=== PATIENT | female | born 1935 | race Caucasian/White ===

== ENCOUNTER 2017-06-22 18:46 | Emergency (ER) | payer MEDICARE ==
[~2017-06-22] VITALS: Ht 154.9 cm; Wt 74.8 kg
[~2017-06-22 18:46] MED LIST: AMLO5TAB4 PO; CHLO10CA5 PO; CHOL400C2 PO; CRESTOR5 MG PO; FERR325T58 PO; FURO-69 PO; MECL25TA3 PO; MULT-245 PO; OMEP40CA5 PO; ONDA4TAB12 PO; SUCR1TAB35 PO; SULF-16 PO; VIT1TABL32 PO
[2017-06-22 19:52] LABS: BASO % 1 % (0-3); EOS # 0.1 x10^3/uL (0.0-0.7); EOS % 4 % (0-3); HEMATOCRIT 40.7 % (36.0-47.0); HEMOGLOBIN 13.8 g/dL (12.0-15.5); LYMPH # 1.2 x10^3/uL (1.0-4.8); LYMPH % 33 % (24-48); MEAN CORPUSCULAR HEMOGLOBIN 32 pg (25-35); MEAN CORPUSCULAR HGB CONC 34 g/dL (31-37); MEAN CORPUSCULAR VOLUME 94 fL (79-100); MONO # 0.3 x10^3/uL (0.0-1.1); MONO % 9 % (0-9); NEUT % 53 % (31-73); PLATELET COUNT 184 x10^3/uL (140-400); RED BLOOD COUNT 4.33 x10^6/uL (3.50-5.40); RED CELL DISTRIBUTION WIDTH 13.7 % (11.5-14.5); WHITE BLOOD COUNT 3.8 x10^3/uL (4.0-11.0)
[2017-06-22 19:59] LABS: ALBUMIN 3.8 g/dL (3.4-5.0); ALBUMIN/GLOBULIN RATIO 1.1 (1.0-1.7); CALCIUM 9.1 mg/dL (8.5-10.1); CREATININE 1.3 mg/dL (0.6-1.0); GFR 39.4; POTASSIUM 3.6 mmol/L (3.5-5.1); TOTAL BILIRUBIN 0.2 mg/dL (0.2-1.0); TOTAL PROTEIN 7.3 g/dL (6.4-8.2)
--- NOTE | 2017-06-22 20:07 | RAD ---
CT head without contrast TECHNIQUE: 5 mm axial noncontrast imaging skull base to vertex HISTORY: Weakness, headache, activated as code stroke at 7:52 PM by phone call by the electroencephalograph technologist. This study was not originally completed as a code stroke. FINDINGS: Small extra-axial subcentimeter calcification overlying the right frontal lobe could be a dural calcification or small meningioma or vascular calcification. Mild generalized brain atrophy. No intracranial hemorrhage, mass effect, hydrocephalus or cortical infarction. Mild patchy areas of white matter hypoattenuation involving the bilateral internal capsules and right external capsule and bilateral cerebral periventricular white matter likely chronic microvascular disease. Subcentimeter hypoattenuating lesion right frontal pollard radiata white matter could be a small age-indeterminate lacunar infarct. No acute ischemic changes of the rausch matter evident. Orbits, mastoids, paranasal sinuses and bones are unremarkable. IMPRESSION: No acute abnormality. Age-indeterminate subacute or chronic small right frontal white matter lacunar infarct. Mild changes of chronic cerebral white matter microvascular disease. Subcentimeter calcification overlying the right frontal lobe likely vascular or secondarily this could be a small meningioma. Critical results called to Dr. Teague at 8:00 PM June 22, 2017. Exposure: One or more of the following individualized dose reduction techniques were utilized for this examination: 1. Automated exposure control 2. Adjustment of the mA and/or kV according to patient size 3. Use of iterative reconstruction technique Electronically signed by: Yohannes Van MD (06/22/2017 8:03 PM) [facility]
[2017-06-22] MEDS ORDERED: ASPIRIN 81 MG TAB.CHEW PO ONE (20:15)
[2017-06-22] MEDS ORDERED: ASPIRIN 81 MG TAB.CHEW ONE (20:15)
--- NOTE | 2017-06-22 20:39 | PHYS DOC ---
Past History Past Medical History: COPD, DVT, GI Bleed, High Cholesterol, Hypertension, P.U.D, TIA, Other Past Surgical History: Hysterectomy, Oophorectomy, Other Smoking: Non-smoker Alcohol Use: None Drug Use: None Adult General Chief Complaint Chief Complaint: SLURRED SPEECH HPI HPI Patient is a 81 year old female who presents with neurologic symptoms. The patient states around 1600 today she had onset of right-sided facial droop, drooling, dysarthria, expressive aphasia. Her symptoms resolved completely prior to arrival. She states she feels better but she had history of previous TIA and would like to be evaluated. She denies any current complaints. Denies headache, vision changes, facial droop, speech changes, extremity numbness or weakness. Denies fevers or chills, chest pain, shortness of breath, lower extremity pain or swelling. She denies current use of any blood thinners but does take aspirin daily. History also includes DVT, HTN, COPD. Her PCP is Dr. Travis. Review of Systems Review of Systems Constitutional: Denies fever or chills Eyes: Denies change in visual acuity HENT: Denies nasal congestion or sore throat Respiratory: Denies cough or shortness of breath Cardiovascular: Denies chest pain or edema GI: Denies abdominal pain, nausea, vomiting, bloody stools or diarrhea : Denies dysuria Musculoskeletal: Denies back pain or joint pain Integument: Denies rash or skin lesions Neurologic: Denies headache, reports resolved facial droop, dysarthria, expressive aphasia. All other systems were reviewed and found to be within normal limits, except as documented in this note. Current Medications Current Medications Current Medications Medications (Trade) Dose Ordered Sig/Faustino Start Time Stop Time Status Last Admin Dose Admin Aspirin (Children'S Aspirin) 81 mg STK-MED ONCE 06/22/17 20:15 06/22/17 20:16 DC Allergies Allergies Allergies Coded Allergies Type Severity Reaction Last Updated Verified Penicillins Allergy Severe Anaphylaxis 04/03/14 Yes Quinolones Allergy Severe Anaphylaxis 04/03/14 Yes fish oil Allergy Severe anaphylaxis 04/03/14 Yes ciprofloxacin Allergy Intermediate sob 09/27/14 No morphine Allergy Intermediate gi 09/27/14 No zolpidem Allergy Intermediate would not wake up 09/27/14 No Physical Exam Physical Exam Constitutional: obese, no acute distress, non-toxic appearance. HENT: Normocephalic, atraumatic, bilateral external ears normal, oropharynx moist, nose normal. no facial droop. Eyes: PERRLA, EOMI, conjunctiva normal, no discharge. Neck: supple, no stridor. Cardiovascular: RRR, no murmurs, no edema. Lungs & Thorax: LCTAB, no wheezing, no respiratory distress. Abdomen: soft, nontender, nondistended. Skin: Warm, dry, no erythema, no rash. Back: No tenderness. Extremities: No tenderness, no edema. Neurologic: Alert and oriented X 3, cranial nerves 2-12 grossly intact, symmetric strength/sensation to upper & lower extremities, intact finger to nose & heel to boateng, no palmar drift, no focal deficits noted. Psychologic: Affect normal, judgement normal, mood normal. Current Patient Data Vital Signs Vital Signs Date Time Temp Pulse Resp B/P (MAP) Pulse Ox O2 Delivery O2 Flow Rate FiO2 06/22/17 18:47 98.1 72 20 99 Room Air Lab Results Laboratory Tests Test 06/22/17 19:20 White Blood Count 3.8 x10^3/uL (4.0-11.0) L Red Blood Count 4.33 x10^6/uL (3.50-5.40) Hemoglobin 13.8 g/dL (12.0-15.5) Hematocrit 40.7 % (36.0-47.0) Mean Corpuscular Volume 94 fL (79-100) Mean Corpuscular Hemoglobin 32 pg (25-35) Mean Corpuscular Hemoglobin Concent 34 g/dL (31-37) Red Cell Distribution Width 13.7 % (11.5-14.5) Platelet Count 184 x10^3/uL (140-400) Neutrophils (%) (Auto) 53 % (31-73) Lymphocytes (%) (Auto) 33 % (24-48) Monocytes (%) (Auto) 9 % (0-9) Eosinophils (%) (Auto) 4 % (0-3) H Basophils (%) (Auto) 1 % (0-3) Neutrophils # (Auto) 2.0 x10^3uL (1.8-7.7) Lymphocytes # (Auto) 1.2 x10^3/uL (1.0-4.8) Monocytes # (Auto) 0.3 x10^3/uL (0.0-1.1) Eosinophils # (Auto) 0.1 x10^3/uL (0.0-0.7) Basophils # (Auto) 0.0 x10^3/uL (0.0-0.2) Sodium Level 146 mmol/L (136-145) H Potassium Level 3.6 mmol/L (3.5-5.1) Chloride Level 109 mmol/L (98-107) H Carbon Dioxide Level 28 mmol/L (21-32) Anion Gap 9 (6-14) Blood Urea Nitrogen 29 mg/dL (7-20) H Creatinine 1.3 mg/dL (0.6-1.0) H Estimated GFR (Cockcroft-Gault) 39.4 BUN/Creatinine Ratio 22 (6-20) H Glucose Level 99 mg/dL (70-99) Calcium Level 9.1 mg/dL (8.5-10.1) Total Bilirubin 0.2 mg/dL (0.2-1.0) Aspartate Amino Transferase (AST) 15 U/L (15-37) Alanine Aminotransferase (ALT) 28 U/L (14-59) Alkaline Phosphatase 100 U/L (46-116) Troponin I Quantitative < 0.017 ng/mL (0-0.055) Total Protein 7.3 g/dL (6.4-8.2) Albumin 3.8 g/dL (3.4-5.0) Albumin/Globulin Ratio 1.1 (1.0-1.7) EKG EKG Interpreted by me: Normal sinus rhythm rate 63, no acute ST or T wave changes, WI interval prolonged 262 ms, no ectopy. Radiology/Procedures Radiology/Procedures PROCEDURE: CT HEAD WO CONTRAST CT head without contrast TECHNIQUE: 5 mm axial noncontrast imaging skull base to vertex HISTORY: Weakness, headache, activated as code stroke at 7:52 PM by phone call by the medical technologist blood bank. This study was not originally completed as a code stroke. FINDINGS: Small extra-axial subcentimeter calcification overlying the right frontal lobe could be a dural calcification or small meningioma or vascular calcification. Mild generalized brain atrophy. No intracranial hemorrhage, mass effect, hydrocephalus or cortical infarction. Mild patchy areas of white matter hypoattenuation involving the bilateral internal capsules and right external capsule and bilateral cerebral periventricular white matter likely chronic microvascular disease. Subcentimeter hypoattenuating lesion right frontal pollard radiata white matter could be a small age-indeterminate lacunar infarct. No acute ischemic changes of the rausch matter evident. Orbits, mastoids, paranasal sinuses and bones are unremarkable. IMPRESSION: No acute abnormality. Age-indeterminate subacute or chronic small right frontal white matter lacunar infarct. Mild changes of chronic cerebral white matter microvascular disease. Subcentimeter calcification overlying the right frontal lobe likely vascular or secondarily this could be a small meningioma. Critical results called to Dr. Teague at 8:00 PM June 22, 2017. Exposure: One or more of the following individualized dose reduction techniques were utilized for this examination: 1. Automated exposure control 2. Adjustment of the mA and/or kV according to patient size 3. Use of iterative reconstruction technique Electronically signed by: Bria Van MD (06/22/2017 8:03 PM) [facility] DICTATED AND SIGNED BY: BRIA VAN MD DATE: 06/22/171956[] Course & Med Decision Making Course & Med Decision Making Pertinent Labs and Imaging studies reviewed. (See chart for details) The patient presents with neurologic symptoms. NIH was 0 upon arrival, completely asymptomatic. While she was here, she had at least 2 episodes of recurrence of dysarthria and expressive aphasia. Each episode lasted less than 10 minutes and then she returned completely to baseline. At no time did she have any change in mental status or extremity symptoms. CT was initially not obtained as code stroke priority but we did expedite reading by the radiologist when she had recurrence of symptoms. No hemorrhage, no acute abnormality. She has a small subacute lacunar infarct which the radiologist felt less likely to be related to her current symptoms that she is right handed and this finding is in the right frontal lobe. Discussed briefly with Dr. Olivares at [facility] who recommended transfer to higher level stroke center. Discussed with Dr. Funes , stroke attending. He agrees to accept for transfer and admission to [facility]. At this time patient is asymptomatic, & he agrees that TPA would not be indicated. The patient has some reservations about receiving TPA. I find no contraindication at this time but do not recommend due to complete resolution of symptoms. Dr. Funes recommends emergent transfer as soon as bed available, they will proceed with advanced imaging upon arrival to [facility]. Patient & family aware of recommendations & plan , & agree. Updated Dr. Travis regarding She is to be transferred by EMS in guarded condition. [] Dragon Disclaimer Dragon Disclaimer This electronic medical record was generated, in whole or in part, using a voice recognition dictation system. Departure Departure: Impression: Primary Impression: Transient ischemic attack Additional Impressions: Dysarthria Expressive aphasia Disposition: XFER OTHER Condition: GUARDED Referrals: KAZ TRAVIS MD (PCP) Problem Qualifiers Primary Impression: Transient ischemic attack Transient cerebral ischemia type: unspecified Qualified Codes: G45.9 - Transient cerebral ischemic attack, unspecified MIRNA CEDEÑO MD Jun 22, 2017 20:39
[2017-06-22 21:12] LABS: BACTERIA,URINE 0 /HPF (0-FEW); BILIRUBIN,URINE NEG (NEG); CLARITY,URINE HAZY; COLOR,URINE YELLOW; GLUCOSE,URINE NEG (NEG); NITRITE,URINE NEG (NEG); RBC,URINE OCC /HPF (0-2); SQUAMOUS EPITHELIAL CELL,UR MOD /LPF; UROBILINOGEN,URINE 0.2 mg/dL (0.2 mg/dL); WBC,URINE OCC /HPF (0-4)
[2017-06-22 21:40] VITALS: BP 141/85
--- NOTE | 2017-06-22 22:17 | EKG ---
[address] [address] Test Date: 2017-06-22 Test Time: 19:12:14 Pat Name: LEYDI NOEL Department: Room: Gender: F [place] Supervisor: ALVARO : [id number] Requested By: MIRNA CEDEÑO Order Number: [id number] Reading MD: Measurements Intervals [place] Rate: 63 P: 34 OK: 262 QRS: -11 QRSD: 78 T: -10 QT: 436 QTc: 449 Interpretive Statements SINUS RHYTHM PROLONGED OK INTERVAL LEFTWARD AXIS ABNORMAL ECG RI6.01 Unconfirmed report No previous ECG available for comparison
--- NOTE | 2017-06-23 08:28 | RAD ---
Portable chest, 06/22/2017: History: Weakness, slurred speech Comparison is made to a study from 09/27/2014. The heart size and pulmonary vascularity are normal. There is calcific plaquing and tortuosity of the thoracic aorta. There is a moderate-sized hiatal hernia. No acute infiltrates are seen. There is no evidence of pleural fluid. IMPRESSION: 1. Moderate sized hiatal hernia. 2. No acute cardiopulmonary abnormality is detected.
== END 2017-06-22 21:44 | disposition short-term general hospital (02) ==
LOC: ER 18:46
DX: G45.9 Transient cerebral ischemic attack, unspecified (principal); E78.00 Pure hypercholesterolemia, unspecified; I10 Essential (primary) hypertension; Z87.11 Personal history of peptic ulcer disease; J44.9 Chronic obstructive pulmonary disease, unspecified; Z86.718 Personal history of other venous thrombosis and embolism; Z86.73 Personal history of transient ischemic attack (TIA), and cerebral infarction without residual deficits; Z79.82 Long term (current) use of aspirin; Z88.5 Allergy status to narcotic agent; Z88.1 Allergy status to other antibiotic agents; Z88.0 Allergy status to penicillin; Z91.048 Other nonmedicinal substance allergy status; Z88.8 Allergy status to other drugs, medicaments and biological substances
CPT/HCPCS: 36415; 70450; 71010; 80053; 81001; 84484; 85025; 85610; 87086; 93005; 99285-25

== ENCOUNTER 2017-09-19 10:45 | Emergency (ER) | payer MEDICARE ==
[2017-09-19 10:55] VITALS: BP 154/93
[2017-09-19] MEDS ORDERED: BETA15CR5 TP (11:17)
--- NOTE | 2017-09-19 11:18 | PHYS DOC ---
Past History Past Medical History: COPD, DVT, GI Bleed, High Cholesterol, Hypertension, P.U.D, TIA, Other Past Surgical History: Hysterectomy, Oophorectomy, Other Smoking: Non-smoker Alcohol Use: None Drug Use: None Adult General Chief Complaint Chief Complaint: SKIN PROBLEM [facility] HPI 82-year-old female patient with multiple drug allergies states she had dose biopsy and removal of a skin tag in her chest and put bacitracin ointment on the affected area 4 days ago. Patient complaining of redness of her face and stopped applying bacitracin. Patient complaining of pruritic rash on right chest wall since yesterday that gradually getting worse. Patient denies shortness of breath, throat swelling, nausea and vomiting, fever and chills. Review of Systems Review of Systems Constitutional: Denies fever or chills [] Eyes: Denies change in visual acuity, redness, or eye pain [] HENT: Denies nasal congestion or sore throat [] Respiratory: Denies cough or shortness of breath [] Cardiovascular: No additional information not addressed in HPI [] GI: Denies abdominal pain, nausea, vomiting, bloody stools or diarrhea [] : Denies dysuria or hematuria [] Musculoskeletal: Denies back pain or joint pain [] Integument: Reports rash [] Neurologic: Denies headache, focal weakness or sensory changes [] Endocrine: Denies polyuria or polydipsia [] All other systems were reviewed and found to be within normal limits, except as documented in this note. Allergies Allergies Allergies Coded Allergies Type Severity Reaction Last Updated Verified Penicillins Allergy Severe Anaphylaxis 04/03/14 Yes Quinolones Allergy Severe Anaphylaxis 04/03/14 Yes fish oil Allergy Severe anaphylaxis 04/03/14 Yes ciprofloxacin Allergy Intermediate sob 09/27/14 No morphine Allergy Intermediate gi 09/27/14 No zolpidem Allergy Intermediate would not wake up 09/27/14 No Physical Exam Physical Exam Constitutional: Well developed, well nourished, mild distress, non-toxic appearance. [] HENT: Normocephalic, atraumat, oropharynx moist, no oral exudates, nose normal. [] Eyes: PERRLA, EOMI, conjunctiva normal, no discharge. [] Neck: Normal range of motion, no tenderness, supple, no stridor. [] Cardiovascular:Heart rate regular rhythm, no murmur [] Lungs & Thorax: Bilateral breath sounds clear to auscultation [] Skin: Clean surgical area of biopsy in base of nose with mild erythema extending to bilateral cheek without rash or sign of infection, maculopapular rash in right side of chest in the area 5 x 15 cm and a small area of rash on the side of chest about 2 x 3 centimeters without sign of infection Back: No tenderness, no CVA tenderness. [] Extremities: No tenderness, no cyanosis, no clubbing, ROM intact, no edema. [] Neurologic: Alert and oriented X 3, normal motor function, normal sensory function, no focal deficits noted. [] Psychologic: Affect normal, judgement normal, mood normal. [] Current Patient Data Vital Signs Vital Signs Date Time Temp Pulse Resp B/P (MAP) Pulse Ox O2 Delivery O2 Flow Rate FiO2 09/19/17 10:55 98.1 79 16 93 Room Air EKG EKG [] Radiology/Procedures Radiology/Procedures [] Course & Med Decision Making Course & Med Decision Making Evaluation of patient in ER showed 82-year-old female patient with developing rash on her face and chest but after applying bacitracin. Patient psychiatric to stop taking bacitracin dressing and prescription for betamethasone was given. Patient instructed to use [id number] Benadryl if she is not getting better with applying local betamethasone. Patient did not want to have the strong antihistamine medication because of history of oversedation with sleeping medication. Dragon Disclaimer Dragon Disclaimer This electronic medical record was generated, in whole or in part, using a voice recognition dictation system. Departure Departure: Impression: Primary Impression: Rash due to allergy Disposition: HOME, SELF-CARE (At 1116) Condition: STABLE Referrals: KAZ TRAVIS MD (PCP) Patient Instructions: Drug Rash Additional Instructions: Stop taking bacitracin Take [id number] Benadryl 25 mg every 8 hours as needed for itching Follow-up with your primary care physician in 3-5 days Return to ER if not getting better Scripts Betamethasone Dipropionate (BETAMETHASONE DIPROPIONATE) 15 Gm Cream..g. 1 GEM TP BID Y for ITCHING, #45 GM 1 Refill Prov: CLINT CAST MD 09/19/17 CLINT CAST MD Sep 19, 2017 11:17
== END 2017-09-19 11:20 | disposition home or self-care (01) ==
LOC: ER 10:45
DX: L23.3 Allergic contact dermatitis due to drugs in contact with skin (principal); T49.0X5A Adverse effect of local antifungal, anti-infective and anti-inflammatory drugs, initial encounter; J44.9 Chronic obstructive pulmonary disease, unspecified; E78.00 Pure hypercholesterolemia, unspecified; I10 Essential (primary) hypertension; Z87.11 Personal history of peptic ulcer disease; Z86.718 Personal history of other venous thrombosis and embolism; Z86.73 Personal history of transient ischemic attack (TIA), and cerebral infarction without residual deficits; Z88.1 Allergy status to other antibiotic agents; Z88.5 Allergy status to narcotic agent; Z88.8 Allergy status to other drugs, medicaments and biological substances; Z91.048 Other nonmedicinal substance allergy status; Y92.89 Other specified places as the place of occurrence of the external cause
CPT/HCPCS: 99283

== ENCOUNTER 2018-12-15 08:02 | Observation (INO) | payer MEDICARE ==
[~2018-12-15] VITALS: Ht 157.5 cm; Wt 76.9 kg
[~2018-12-15 08:02] MED LIST changes: +BETA15CR5 TP
[2018-12-15 08:52] LABS: BASO % 1 % (0-3); EOS # 0.2 x10^3/uL (0.0-0.7); EOS % 5 % (0-3); HEMATOCRIT 41.6 % (36.0-47.0); HEMOGLOBIN 13.8 g/dL (12.0-15.5); LYMPH % 27 % (24-48); MEAN CORPUSCULAR HEMOGLOBIN 31 pg (25-35); MEAN CORPUSCULAR HGB CONC 33 g/dL (31-37); MEAN CORPUSCULAR VOLUME 94 fL (79-100); MONO # 0.3 x10^3/uL (0.0-1.1); MONO % 7 % (0-9); NEUT # 2.2 x10^3uL (1.8-7.7); NEUT % 60 % (31-73); PLATELET COUNT 157 x10^3/uL (140-400); RED BLOOD COUNT 4.45 x10^6/uL (3.50-5.40); RED CELL DISTRIBUTION WIDTH 13.9 % (11.5-14.5); WHITE BLOOD COUNT 3.7 x10^3/uL (4.0-11.0)
--- NOTE | 2018-12-15 08:56 | PHYS DOC ---
Past History Past Medical History: COPD, DVT, GI Bleed, High Cholesterol, Hypertension, P.U.D, TIA, Other Past Surgical History: Hysterectomy, Oophorectomy, Other Smoking: Non-smoker Alcohol Use: None Drug Use: None Adult General Chief Complaint Chief Complaint: HEADACHE HPI HPI Patient is an 83-year-old female who presents with report of having had slurred speech and facial droop earlier this morning. Patient's son indicates that he noted the symptoms between half hour and an hour prior to arrival. Patient indicates that currently she feels asymptomatic and does not feel that she was having those symptoms. Patient does admit to a history of TIAs in the past and was admitted last year for TIA. Patient denies any lateralizing weakness and has had no chest pain, shortness of breath or headache.[] Review of Systems Review of Systems Constitutional: Denies fever or chills [] Respiratory: Denies cough or shortness of breath [] Cardiovascular: No additional information not addressed in HPI [] GI: Denies abdominal pain, nausea, vomiting, bloody stools or diarrhea [] : Denies dysuria or hematuria [] Neurologic: Denies headache, focal weakness or sensory changes [] All other systems were reviewed and found to be within normal limits, except as documented in this note. Allergies Allergies Allergies Coded Allergies Type Severity Reaction Last Updated Verified Penicillins Allergy Severe Anaphylaxis 04/03/14 Yes Quinolones Allergy Severe Anaphylaxis 04/03/14 Yes fish oil Allergy Severe anaphylaxis 04/03/14 Yes bacitracin Allergy Intermediate rash/itching 10/21/18 Yes ciprofloxacin Allergy Intermediate sob 09/27/14 No morphine Allergy Intermediate gi 09/27/14 No zolpidem Allergy Intermediate would not wake up 09/27/14 No Physical Exam Physical Exam Constitutional: Well developed, well nourished, no acute distress, non-toxic appearance. [] HENT: Normocephalic, atraumatic, bilateral external ears normal, oropharynx moist, no oral exudates, nose normal. [] Eyes: PERRLA, EOMI, conjunctiva normal, no discharge. [] Neck: Normal range of motion, no tenderness, supple, no bruit. [] Cardiovascular:Heart rate regular rhythm [] Lungs & Thorax: Bilateral breath sounds clear to auscultation [] Abdomen: Bowel sounds normal, soft, no tenderness, no masses, no pulsatile masses. [] Skin: Warm, dry, no erythema, no rash. [] Extremities: No tenderness, no cyanosis, no clubbing, ROM intact. [] Neurologic: Alert and oriented X 3, normal motor function, normal sensory function, no focal deficits noted. [] Current Patient Data Vital Signs Vital Signs Date Time Temp Pulse Resp B/P (MAP) Pulse Ox O2 Delivery O2 Flow Rate FiO2 12/15/18 08:21 97.7 70 18 96 Room Air EKG EKG EKG demonstrates normal sinus rhythm with rate of 65.[] Radiology/Procedures Radiology/Procedures [] Impressions: PROCEDURE: CT HEAD WO CONTRAST CT HEAD WO CONTRAST History: Slurred speech, facial droop Comparison: June 22, 2017 Technique: Noncontrast CT imaging was performed of the head. Exposure: One or more of the following individualized dose reduction techniques were utilized for this examination: 1. Automated exposure control 2. Adjustment of the mA and/or kV according to patient size 3. Use of iterative reconstruction technique. Findings: There is no evidence of acute intracranial hemorrhage. There is no intra-axial mass effect, midline shift, extra-axial fluid collection. There is again mild supratentorial involutional change. There are again small old lacunar infarcts of the bilateral basal ganglia, other mild ill-defined low-density of the supratentorial parenchyma also similar. Visualized paranasal sinuses and mastoid air cells are aerated. There is some atherosclerotic calcification of the carotid siphons. Impression: 1. No acute intracranial abnormality is identified. If there is suspicion for evolving or acute ischemia, follow-up CT or MRI may be beneficial. There are again small old lacunar infarcts of the bilateral basal ganglia, other minimal ill-defined low-density probably due to chronic microvascular ischemic disease. Electronically signed by: Zaheer Holliday MD (12/15/2018 8:57 AM) [id number] Course & Med Decision Making Course & Med Decision Making Pertinent Labs and Imaging studies reviewed. (See chart for details) Patient moved to room upon arrival was evaluated by your medical staff after which an IV was established and blood work drawn. A CT of the head was completed that demonstrated no acute process. NIH stroke scale was completed by nurse and was completely unremarkable. Blood work is returned with findings of low potassium which has been replaced with 40 mEq of by mouth potassium. Patient's case discussed with Dr. Lambert and he is requesting that patient be observed overnight with neurology consult. Dragon Disclaimer Dragon Disclaimer This electronic medical record was generated, in whole or in part, using a voice recognition dictation system. Departure Departure: Impression: Primary Impression: TIA (transient ischemic attack) Additional Impressions: Hypokalemia Dehydration Disposition: ADMITTED INPATIENT Admitting Physician: Chandler Lambert Condition: STABLE Referrals: CHANDLER LAMBERT MD (PCP) Problem Qualifiers JOANIE WALKER Jr. DO Dec 15, 2018 08:56
[2018-12-15 08:58] LABS: ALBUMIN 3.6 g/dL (3.4-5.0); ALBUMIN/GLOBULIN RATIO 1.1 (1.0-1.7); CALCIUM 8.9 mg/dL (8.5-10.1); CREATININE 1.1 mg/dL (0.6-1.0); GFR 47.6; TOTAL BILIRUBIN 0.5 mg/dL (0.2-1.0)
--- NOTE | 2018-12-15 08:59 | RAD ---
CT HEAD WO CONTRAST History: Slurred speech, facial droop Comparison: June 22, 2017 Technique: Noncontrast CT imaging was performed of the head. Exposure: One or more of the following individualized dose reduction techniques were utilized for this examination: 1. Automated exposure control 2. Adjustment of the mA and/or kV according to patient size 3. Use of iterative reconstruction technique. Findings: There is no evidence of acute intracranial hemorrhage. There is no intra-axial mass effect, midline shift, extra-axial fluid collection. There is again mild supratentorial involutional change. There are again small old lacunar infarcts of the bilateral basal ganglia, other mild ill-defined low-density of the supratentorial parenchyma also similar. Visualized paranasal sinuses and mastoid air cells are aerated. There is some atherosclerotic calcification of the carotid siphons. Impression: 1. No acute intracranial abnormality is identified. If there is suspicion for evolving or acute ischemia, follow-up CT or MRI may be beneficial. There are again small old lacunar infarcts of the bilateral basal ganglia, other minimal ill-defined low-density probably due to chronic microvascular ischemic disease. Electronically signed by: Zaheer Holliday MD (12/15/2018 8:57 AM) [id number]
[2018-12-15 09:00] LABS: POTASSIUM 2.9 mmol/L (3.5-5.1)
[2018-12-15] MEDS ORDERED: POTASSIUM CHLORIDE 20 MEQ/15 ML ORAL LIQUID. PO ONE (09:30)
[2018-12-15] MEDS ORDERED: ASPIRIN 325 MG TABLET PO ONE (10:00)
[2018-12-15] MEDS: IV NORMAL SALINE 1,000ML 1,000 ML IV SCH ×3 (10:00→20:56)
[2018-12-15 10:21] LABS: BACTERIA,URINE 0 /HPF (0-FEW); BILIRUBIN,URINE NEG (NEG); CLARITY,URINE CLEAR; COLOR,URINE YELLOW; GLUCOSE,URINE NEG (NEG); NITRITE,URINE NEG (NEG); RBC,URINE 0 /HPF (0-2); SQUAMOUS EPITHELIAL CELL,UR FEW /LPF; UROBILINOGEN,URINE 0.2 mg/dL (0.2 mg/dL)
[2018-12-15 11:20] VITALS: BP 143/85
[2018-12-15] MEDS ORDERED: LIBRIUM PO (12:43)
[2018-12-15] MEDS ORDERED: LEVO50TA5 PO (12:43)
[2018-12-15] MEDS ORDERED: BUME2TAB3 PO (12:43)
[2018-12-15] MEDS ORDERED: LORazepam 0.5 MG TABLET PO PRN (13:00)
[2018-12-15 13:25] LABS: CALCIUM 8.9 mg/dL (8.5-10.1); GFR 53.1; POTASSIUM 3.2 mmol/L (3.5-5.1)
--- NOTE | 2018-12-15 13:33 | HP ---
ADMIT DATE: 12/15/2018 HISTORY OF PRESENT ILLNESS: The patient admitted for possible TIA, [id number]. The patient was seen by her family members having trouble with slow speech and possible early facial drooping. The patient was noted symptoms lasted about a half an hour, came back in through the Emergency Room. The patient was admitted for further evaluation for possible TIA versus [id number]. The patient in the past has had previous problems with TIAs. PAST MEDICAL AND SURGICAL HISTORY: The patient's history includes that of COPD, DVT, GI bleed, hypercholesterolemia, hypertension, TIAs, PUD, hysterectomy, oophorectomy. MEDICATIONS: Otherwise medications were reconciled in the reconciliation facility. FAMILY HISTORY: Basically noncontributory in this situation. ALLERGIES: The patient has allergies to PENICILLIN, QUINOLONES, FISH OIL, BACITRACIN, CIPROFLOXACIN, MORPHINE and AMBIEN. SOCIAL HISTORY: Denies smoking, alcohol or drug use. Lives at home with her family. She is . REVIEW OF SYSTEMS: The patient denies chest pain, shortness of breath, nausea, vomiting, melena, hematochezia, hematemesis and neurologically stable except for the slurred speech. She had earlier today, but then it seemed to clear. PHYSICAL EXAMINATION: GENERAL: This is a pleasant white female in moderate amount of distress. VITAL SIGNS: Blood pressure 140/80, respiratory rate 20, pulse 60, afebrile. HEENT: The patient's head was atraumatic, normocephalic. Eyes: PERRLA without jaundice. Mouth and throat were normal. NECK: Supple. LUNGS: Clear. CARDIOVASCULAR: Regular sinus rhythm, S1, S2, without murmur, rub, thrill, or extra heart sounds. ABDOMEN: Soft, nontender, no rebound or guarding. Positive bowel sounds, no hepatosplenomegaly was noted. EXTREMITIES: No clubbing, cyanosis or edema. NEUROLOGIC: The patient is alert and oriented x 3 at the present time. Speech fluent, spontaneous, appropriate. Cranial nerves 2-12 grossly intact. The patient was admitted for further evaluation and treatment thereof and make further assessment on her as indicated. IMPRESSION: Transient ischemic attack versus [id number], severe hypokalemia, correct that and make further evaluation on her as indicated. KAZ TRAVIS MD DR: Rajinder JOB#: [id number] / [id number]
[2018-12-15] MEDS ORDERED: POTASSIUM CHLORIDE 20 MEQ TABLET.ER. PO ONE (14:00)
[2018-12-15 14:35] VITALS: BP 98/53
[2018-12-15] MEDS: HEPARIN for SUB-Q USE 5,000 UNIT/ML VIAL. SQ SCH ×2 (14:43→20:59)
--- NOTE | 2018-12-15 16:28 | RAD ---
Carotid doppler ultrasound History: Hypertension, TIA, speech difficulty Multiple grayscale, color, and duplex spectral analysis waveform sonographic images were acquired of the carotid, subclavian, and vertebral arteries. Comparison: None Findings: RIGHT: PSV cm/sec EDV cm/sec Common carotid artery 45 10 Maximal internal carotid artery 77 18 External carotid artery 61 Vertebral artery 35 ICA/CCA ratio 1.7 LEFT: PSV cm/sec EDV cm/sec Common carotid artery 50 9 Maximum internal carotid artery 50 15 External carotid artery 51 Vertebral artery 41 ICA/CCA ratio 1.0 Velocities used to determine stenosis are known to correlate with NASCET angiographic criteria. There is antegrade flow in the bilateral vertebral arteries. No significant stenosis is demonstrated on grayscale or color images. Impression: 1. There is no evidence of a hemodynamically significant stenosis. Electronically signed by: Zaheer Holliday MD (12/15/2018 4:26 PM) [id number]
[2018-12-15 19:38] VITALS: BP 102/56
[2018-12-15] MEDS ORDERED: ATORVASTATIN CALCIUM 20 MG TABLET PO SCH (21:00)
--- NOTE | 2018-12-16 04:40 | CONS ---
DATE OF CONSULTATION: 12/15/2018 NEUROLOGIC CONSULTATION REFERRING PHYSICIAN: Dr. Chandler Lambert. REASON FOR CONSULTATION: Rule out TIA versus stroke. HISTORY OF PRESENT ILLNESS: This is an 83-year-old right-handed female who was admitted through Emergency Room after she presented with 1/2-1 hour history of possible TIA. According to the patient, she was found by her son having slurred speech and mild right facial drooping lasted a few minutes. When she arrived to Emergency Room, the patient was symptoms free and she did not have any facial drooping. She denies headaches, visual disturbances, nausea, vomiting, chest pain, shortness of breath, or palpitations. However, she felt tired and weak in general. Initial nonenhanced head CT scan revealed no evidence of intracranial process, but small vessel ischemic changes and basal ganglia lacunar infarcts. The patient had similar episode in few years back. Currently, she denies numbness, paresthesia or weakness of the upper and lower extremities. She denies dysarthria, dysphagia, or vertigo. PAST MEDICAL HISTORY: Significant for hypertension, hyperlipidemia, gastric ulcer, DVT, COPD, and hypothyroidism. PAST SURGICAL HISTORY: Significant for oophorectomy and hysterectomy. SOCIAL HISTORY: The patient lives with her son at home. She denies smoking, alcohol drinking, or illicit drug use. She is . FAMILY HISTORY: Noncontributory. CURRENT HOME MEDICATIONS PRIOR TO ADMISSION: Include amlodipine 5 mg daily, bumetanide 2 mg daily, levothyroxine 50 mcg daily, multivitamins, Crestor 5 mg daily, vitamin A, C, and E, Librium 10 mg q.i.d. ALLERGIES: PENICILLIN, BACITRACIN, CIPRO, OFLOXACIN, FISH OIL, MORPHINE ZOLPIDEM AND QUINOLONES. REVIEW OF SYSTEMS: A 10-point review of system was performed as mentioned above in history of present illness. PHYSICAL EXAMINATION: GENERAL: Well-developed, well-nourished female, not in acute distress. She weighs 76 kilos. VITAL SIGNS: Blood pressure 98/53, respiratory rate 18, pulse is 60, temperature 97.3, oxygen saturation is 93% on room air. HEENT: Normocephalic, atraumatic, otherwise unremarkable. NECK: Supple. Negative for carotid bruit, lymphadenopathy or thyromegaly. LUNGS: Clear to A and P. CARDIOVASCULAR: Regular rhythm, normal S1, S2. There is no S3, S4, or murmur. ABDOMEN: Soft. Bowel sounds positive. EXTREMITIES: Negative for cyanosis, clubbing or pitting edema. NEUROLOGIC: Mental status: The patient is alert and oriented x 3. The speech is fluent. There is no language dysfunction. Memory, judgment, and abstracting thinking are normal. The patient denies hallucination or delusion. CRANIAL NERVES: Visual arriaga are full. The pupils are reactive to light and accommodation. The extraocular movements are intact. There is no nystagmus. There is no facial motor or sensory deficit. Hearing is intact bilaterally. The palate is elevated symmetrically. Sternocleidomastoid muscles are powerful bilaterally. The patient shrugs her shoulders symmetrically and protrudes her tongue in the midline without fasciculation or atrophy. MOTOR EXAMINATION: No focal muscle bulk was seen. The tone is normal. The strength is 5/5 throughout. Sensory examination revealed normal pinprick, light touch, vibratory and position senses. Deep tendon reflexes were symmetric and hypoactive with absent Achilles responses. Gait: The stance is steady. LABORATORY DATA: CBC revealed white blood cells of 3.7 thousand, hemoglobin is 13.8, hematocrit 41.6, platelet count 157,000. Chemistry revealed sodium of 147, potassium of 3.2, chloride 108, CO2 30, BUN 25, creatinine 1, glucose 93, calcium 8.9. Liver enzymes are normal and lipid profile is normal with elevated HDL. Urinalysis is trace of urinary leukocyte esterase with white blood cells of 5-10. DIAGNOSTIC: Nonenhanced head CT scan as mentioned above in history of present illness consistent with small vessel ischemic changes and bibasilar ganglia infarct. Carotid Doppler study revealed no evidence of significant stenosis. IMPRESSION: 1. Possible transient ischemic attack, probably provoked by dehydration. 2. Hypokalemia. 3. Multiple medical problems include hypertension, COPD, DVT, history of peptic ulcer disease years ago, and hyperlipidemia. RECOMMENDATIONS: 1. Continue with current management. 2. As the patient was taking baby aspirin daily prior to this admission and possible recent transient ischemic attack, I recommended to take coated aspirin 81 mg twice daily carefully and watch for any GI symptoms and watch for any symptoms of peptic ulcer disease. 3. Potassium supplement. 4. Physical therapy evaluation. M Janel HUDSON MD DR: Nadege JOB#: [id number] / [id number] LIYAH
[2018-12-16] MEDS: HEPARIN for SUB-Q USE 5,000 UNIT/ML VIAL. SQ SCH (05:54)
[2018-12-16] MEDS ORDERED: LEVOTHYROXINE 50 MCG TABLET PO SCH (06:00)
[2018-12-16 06:25] VITALS: BP 129/65
[2018-12-16 06:26] LABS: CALCIUM 8.5 mg/dL (8.5-10.1); CREATININE 0.8 mg/dL (0.6-1.0); GFR 68.7; POTASSIUM 3.4 mmol/L (3.5-5.1)
[2018-12-16 06:27] LABS: BASO % 1 % (0-3); EOS # 0.2 x10^3/uL (0.0-0.7); EOS % 6 % (0-3); HEMATOCRIT 39.9 % (36.0-47.0); HEMOGLOBIN 13.1 g/dL (12.0-15.5); LYMPH # 0.8 x10^3/uL (1.0-4.8); LYMPH % 30 % (24-48); MEAN CORPUSCULAR HEMOGLOBIN 31 pg (25-35); MEAN CORPUSCULAR HGB CONC 33 g/dL (31-37); MEAN CORPUSCULAR VOLUME 95 fL (79-100); MONO # 0.2 x10^3/uL (0.0-1.1); MONO % 7 % (0-9); NEUT # 1.6 x10^3uL (1.8-7.7); NEUT % 56 % (31-73); PLATELET COUNT 154 x10^3/uL (140-400); RED BLOOD COUNT 4.22 x10^6/uL (3.50-5.40); RED CELL DISTRIBUTION WIDTH 14.1 % (11.5-14.5); WHITE BLOOD COUNT 2.8 x10^3/uL (4.0-11.0)
[2018-12-16] MEDS: IV NORMAL SALINE 1,000ML 1,000 ML IV SCH (06:45)
[2018-12-16] MEDS ORDERED: POTASSIUM CHLORIDE 20 MEQ TABLET.ER. PO ONE (07:00)
[2018-12-16 08:19] VITALS: BP 129/65
[2018-12-16] MEDS ORDERED: MULTIVITAMIN with MINERAL TABLET. PO SCH (09:00)
[2018-12-16] MEDS ORDERED: MULTIVITAMIN I-VITE TABLET. PO SCH (09:00)
[2018-12-16] MEDS ORDERED: BUMETANIDE 1 MG TABLET PO SCH (09:00)
[2018-12-16] MEDS ORDERED: amLODIPine BESYLATE 5 MG TABLET PO SCH (09:00)
[2018-12-16] MEDS ORDERED: ASPI-612 PO (09:33)
--- NOTE | 2018-12-16 10:49 | DS ---
DATE OF DISCHARGE: HOSPITAL COURSE: The patient was admitted because of some garbled speech and possible left-sided facial weakness. The patient made good progress. Her potassium was 2.9, came up to 3.4. She will continue on potassium as an outpatient. Her carotid Dopplers were negative. The patient made excellent recovery. She had no complications whatsoever. The patient's urine culture was pending at the time of discharge. Otherwise, her blood pressure was 130/60, respiratory rate 18, pulse 60, afebrile. The patient is alert and oriented. Speech is fluent, spontaneous, appropriate. Cranial nerves 2-12 intact. IMPRESSION: Transient ischemic attack, hypokalemia, history of chronic obstructive pulmonary disease, deep venous thrombosis, history of gastrointestinal bleed. PLAN: The patient will be discharged home on her heart healthy diet, decreased activity, see [facility]AD. KAZ TRAVIS MD DR: JEWEL/saturnino JOB#: [id number] / [id number]
--- NOTE | 2018-12-16 16:11 | PN ---
DATE: SUBJECTIVE: The patient denies any new medical or neurological complaints. OBJECTIVE: GENERAL: Well-developed, well-nourished female, not in acute distress. VITAL SIGNS: Blood pressure 129/65, respiratory rate 18, pulse is 58, oxygen saturation 96% on room air, and temperature is 98.1. HEENT: Normocephalic, atraumatic, otherwise unremarkable. NECK: Supple. Negative for carotid bruit, lymphadenopathy or thyromegaly. LUNGS: Clear to A and P. CARDIOVASCULAR: Regular rhythm. Normal S1, S2. ABDOMEN: Soft. Bowel sounds positive. EXTREMITIES: Negative for cyanosis, clubbing or pitting edema. NEUROLOGICAL EXAM: Normal mental status and intact cranial nerves. There is no focal motor or sensory deficit. Deep tendon reflexes were symmetric and hypoactive with absent Achilles responses. Gait and coordination are normal. LABORATORY DATA: CBC revealed white blood cells of 2.8 thousand, hemoglobin 13.1, hematocrit 39.9, platelet count 154,000. Chemistry revealed sodium of 145, potassium 3.4, chloride 112, CO2 26, BUN 19, creatinine 0.8, calcium 8.5, and glucose 94. IMPRESSION: 1. Possible TIA, no recurrence. 2. Leukopenia, etiology uncertain. 3. Hypertension. 4. Hypokalemia, hyperlipidemia, COPD, history of deep venous thrombosis. RECOMMENDATIONS: 1. The patient to be evaluated by a cad administrator for leukopenia. 2. Potassium supplement. 3. Continue with current management initiated by Dr. Lambert. M Janel HUDSON MD DR: TIFFANY/saturnino JOB#: [id number] / [id number]
== END 2018-12-16 10:22 | disposition home or self-care (01) ==
LOC: ER 08:02 → ICU 10:55 → OBSVTOIN 15:40 → INTOOBSV 15:40
PROVIDERS: ADMIT Family Medicine; ATTEND Family Medicine
DX: G45.9 Transient cerebral ischemic attack, unspecified (principal); R29.810 Facial weakness; R47.81 Slurred speech; J44.9 Chronic obstructive pulmonary disease, unspecified; E78.00 Pure hypercholesterolemia, unspecified; I10 Essential (primary) hypertension; Z90.710 Acquired absence of both cervix and uterus; Z87.11 Personal history of peptic ulcer disease; Z86.718 Personal history of other venous thrombosis and embolism; E86.0 Dehydration; E87.6 Hypokalemia; K92.2 Gastrointestinal hemorrhage, unspecified; Z86.73 Personal history of transient ischemic attack (TIA), and cerebral infarction without residual deficits
CPT/HCPCS: 36415; 70450; 80048; 80053; 80061; 81001; 85025; 87641; 93005; 93880; 96360; 96361; 96372; 97165; 99284; G0378; J1644; G0379; J7030

== ENCOUNTER 2019-08-08 16:17 | Inpatient (IN) | payer MEDICARE ==
[~2019-08-08] VITALS: Ht 157.5 cm; Wt 76.8 kg
[~2019-08-08 16:17] MED LIST changes: +ASPI-612 PO; +BUME2TAB3 PO; +LEVO50TA5 PO; +LIBRIUM PO; +MECL-75 PO; -MECL25TA3 PO; +OMEP40CA45 PO; -OMEP40CA5 PO
[2019-08-08] MEDS ORDERED: CELE200C PO (17:19)
[2019-08-08] MEDS ORDERED: OMEP-203 PO (17:19)
[2019-08-08] MEDS ORDERED: ERGO2000 PO (17:19)
[2019-08-08] MEDS ORDERED: FURO20TA3 PO (17:19)
[2019-08-08] MEDS ORDERED: FUROSEMIDE 20 MG TABLET PO PRN (17:45)
[2019-08-08] MEDS ORDERED: CELECOXIB 100 MG CAPSULE PO PRN (17:45)
[2019-08-08] MEDS: CITALOPRAM 10 MG TABLET. PO SCH (18:00)
[2019-08-08 18:07] LABS: BASO % 1 % (0-3); EOS # 0.1 x10^3/uL (0.0-0.7); EOS % 4 % (0-3); HEMATOCRIT 40.9 % (36.0-47.0); HEMOGLOBIN 13.1 g/dL (12.0-15.5); LYMPH % 26 % (24-48); MEAN CORPUSCULAR HEMOGLOBIN 31 pg (25-35); MEAN CORPUSCULAR HGB CONC 32 g/dL (31-37); MEAN CORPUSCULAR VOLUME 95 fL (79-100); MONO # 0.3 x10^3/uL (0.0-1.1); MONO % 9 % (0-9); NEUT # 2.4 x10^3uL (1.8-7.7); NEUT % 60 % (31-73); PLATELET COUNT 183 x10^3/uL (140-400); RED BLOOD COUNT 4.29 x10^6/uL (3.50-5.40); RED CELL DISTRIBUTION WIDTH 14.9 % (11.5-14.5); WHITE BLOOD COUNT 3.9 x10^3/uL (4.0-11.0)
[2019-08-08 18:09] VITALS: BP 146/83
[2019-08-08 19:15] VITALS: BP 128/78
[2019-08-08 19:51] LABS: ALBUMIN 3.3 g/dL (3.4-5.0); CALCIUM 8.6 mg/dL (8.5-10.1); POTASSIUM 3.6 mmol/L (3.5-5.1); TOTAL BILIRUBIN 0.2 mg/dL (0.2-1.0); TOTAL PROTEIN 6.5 g/dL (6.4-8.2)
--- NOTE | 2019-08-08 21:03 | RAD ---
PA and lateral chest. HISTORY: Short of breath PA and lateral views were taken of the chest. There is a large hiatus hernia. There is no effusion. Heart is normal in size. There is linear scarring or atelectasis in the lung bases without other infiltrates. There is dorsal kyphosis. IMPRESSION: 1. Linear scarring or atelectasis. 2. Large hiatus hernia. 3. No other infiltrates. Electronically signed by: Jose Hooker MD (08/08/2019 9:00 PM) [id number]
[2019-08-08] MEDS: ATORVASTATIN CALCIUM 20 MG TABLET PO SCH (21:28)
[2019-08-08] MEDS: ALPRAZolam 0.5 MG TABLET PO PRN (21:28)
[2019-08-08 22:05] VITALS: BP 118/70
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
[2019-08-09 05:39] VITALS: BP 130/77
[2019-08-09] MEDS: LEVOTHYROXINE 50 MCG TABLET PO SCH (05:53)
[2019-08-09 06:08] LABS: COLOR,URINE YELLOW
[2019-08-09 06:09] LABS: BACTERIA,URINE FEW /HPF (0-FEW); BILIRUBIN,URINE NEG (NEG); CLARITY,URINE HAZY; GLUCOSE,URINE NEG (NEG); NITRITE,URINE NEG (NEG); RBC,URINE OCC /HPF (0-2); SQUAMOUS EPITHELIAL CELL,UR FEW /LPF; UROBILINOGEN,URINE 0.2 mg/dL (0.2 mg/dL)
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
[2019-08-09] MEDS: PANTOPRAZOLE 40 MG TABLET. PO SCH (08:32)
[2019-08-09] MEDS: CITALOPRAM 10 MG TABLET. PO SCH (08:32)
[2019-08-09] MEDS: CHOLECALCIFEROL (VITAMIN D3) 1,000 UNIT TABLET PO SCH (08:33)
[2019-08-09] MEDS: MULTIVITAMIN I-VITE TABLET. PO SCH (08:33)
[2019-08-09] MEDS: ASPIRIN ENTERIC COATED 81 MG TABLET.DR. PO SCH (08:33)
[2019-08-09] MEDS: ALPRAZolam 0.5 MG TABLET PO PRN ×2 (08:36→21:07)
[2019-08-09] MEDS: amLODIPine BESYLATE 5 MG TABLET PO SCH (08:42)
[2019-08-09] MEDS: BUMETANIDE 1 MG TABLET PO SCH (08:42)
[2019-08-09] MEDS ORDERED: MULTIVITAMIN with MINERAL TABLET. PO SCH (09:00)
[2019-08-09 10:18] VITALS: BP 115/71
--- NOTE | 2019-08-09 10:28 | PN ---
DATE: SUBJECTIVE: The patient denies any new medical or neurological complaints. OBJECTIVE: GENERAL: Well-developed, well-nourished female, not in acute distress. VITAL SIGNS: Blood pressure 130/77, respiratory rate 18, pulse is 56 and regular, oxygen saturation is 94% on room air. HEENT: Normocephalic, atraumatic, otherwise unremarkable. NECK: Supple. Negative for carotid bruit, lymphadenopathy or thyromegaly. LUNGS: Clear to A and P. CARDIOVASCULAR: Regular rate and rhythm, normal S1, S2. There is no S3, S4 or murmur. ABDOMEN: Soft. Bowel sounds positive. EXTREMITIES: Negative for cyanosis, clubbing or edema. NEUROLOGICAL EXAM: Normal mental status and intact cranial nerves. Motor examination: No focal muscle bulk was seen. The tone is normal. The strength is 5/5 throughout. Sensory examination revealed normal pinprick, light touch, vibratory and position senses. Deep tendon reflexes were symmetric and hypoactive with absent Achilles responses. Gait and coordination are normal. The tandem gait is abnormal. X-ray of the chest revealed no acute cardiopulmonary process. Cervical, thoracic, and lumbar spines x-rays revealed no acute process, but it shows degenerative changes. IMPRESSION: 1. Impaired balance while walking and multiple falls in the last 6 months or so, probably due to generalized arthritis of the spine and joints of the lower extremities. 2. Multiple medical problems include hypertension, hyperlipidemia, hypothyroidism, gastroesophageal reflux disease, history of peptic ulcer disease, depression and anxiety. RECOMMENDATIONS: Continue with current management initiated by Dr. Lambert and physical therapy as tolerated. M Janel HUDSON MD DR: TIFFANY/saturnino JOB#: [id number] / [id number]
[2019-08-09 14:51] VITALS: BP 114/65
[2019-08-09 19:34] VITALS: BP 116/67
[2019-08-09] MEDS: ATORVASTATIN CALCIUM 20 MG TABLET PO SCH (21:07)
[2019-08-09 23:07] VITALS: BP 103/62
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
[2019-08-10 05:49] VITALS: BP 120/68
[2019-08-10] MEDS: LEVOTHYROXINE 50 MCG TABLET PO SCH (06:14)
[2019-08-10] MEDS: BUMETANIDE 1 MG TABLET PO SCH (07:45)
[2019-08-10] MEDS: CITALOPRAM 10 MG TABLET. PO SCH (07:45)
[2019-08-10] MEDS: MULTIVITAMIN I-VITE TABLET. PO SCH (07:46)
[2019-08-10] MEDS: amLODIPine BESYLATE 5 MG TABLET PO SCH (07:46)
[2019-08-10] MEDS: PANTOPRAZOLE 40 MG TABLET. PO SCH (07:46)
[2019-08-10] MEDS: CHOLECALCIFEROL (VITAMIN D3) 1,000 UNIT TABLET PO SCH (07:48)
[2019-08-10] MEDS: ASPIRIN ENTERIC COATED 81 MG TABLET.DR. PO SCH (07:49)
--- NOTE | 2019-08-10 09:56 | PN ---
DATE: SUBJECTIVE: The patient denies any new medical or neurological complaints. She is more steady on her feet. Physical therapy has been seeing her and she is doing well. She eats, drinks and walks fine. OBJECTIVE: GENERAL: Well-developed, well-nourished female, not in acute distress. VITAL SIGNS: Stable, afebrile, blood pressure 120/68, respiratory rate 20, pulse is 54 regular, oxygen saturation is 95% on room air. HEENT: Normocephalic, atraumatic, otherwise unremarkable. NECK: Supple. Negative for carotid bruit, lymphadenopathy or thyromegaly. LUNGS: Clear to A and P. CARDIOVASCULAR: Regular rate and rhythm, normal S1, S2. ABDOMEN: Soft. Bowel sounds positive. EXTREMITIES: Negative for cyanosis, clubbing or edema. NEUROLOGICAL EXAM: Normal mental status and intact cranial nerves. There is no focal motor or sensory deficit. The strength is 5/5 throughout. Sensory examination revealed normal pinprick, light touch, vibratory and position senses. Deep tendon reflexes were symmetric and hypoactive with absent Achilles responses. Gait and coordination are normal. IMPRESSION: 1. Impaired balance while walking with history of multiple falls. The last fall was in 11/2018 with improvement of her gait and balance. 2. Multiple medical problems include hypertension, hyperlipidemia, hypothyroidism, gastroesophageal reflux disease and history of peptic ulcer disease, depression, anxiety. RECOMMENDATION: Continue with current management initiated by Dr. Lambert and physical therapy as needed. M Janel HUDSON MD DR: TIFFANY/saturnino JOB#: [id number] / [id number]
[2019-08-10 10:08] VITALS: BP 119/74
--- NOTE | 2019-08-10 11:36 | CARD ---
MR#: [id number] Date of Study: 08/10/2019 Ordering Physician: KAZ TRAVIS, Referring Physician: KAZ TRAVIS, Tech: Mariama Bojorquez APPROVED REPORT EXAM: Two-dimensional and M-mode echocardiogram with Doppler and color Doppler. Other Information Quality : AverageHR: 67bpm INDICATION Syncope Bradycardia 2D DIMENSIONS Left Atrium(2D)1.5 (1.6-4.0cm)IVSd1.0 (0.7-1.1cm) Aortic Root(2D)3.0 (2.0-3.7cm)LVDd4.3 (3.9-5.9cm) LVOT Diameter1.8 (1.8-2.4cm)PWd0.9 (0.7-1.1cm) LVDs2.9 (2.5-4.0cm)FS (%) 32.2 % SV49.5 mlLVEF(%)60.8 (>50%) Aortic Valve AoV Peak Juan Manuel.156.3cm/sAoV VTI35.4cm AO Peak GR.9.8mmHgLVOT Peak Juan Manuel.133.3cm/s LVOT VTI 28.63cmAO Mean GR.5mmHg THOMAS (VMAX)2.13zb1NJH (VTI)2.05cm2 Mitral Valve MV E Aehruyrp76.5cm/sMV A Velocity0.6cm/s E/A Llsxv618.5 Pulmonary Valve PV Peak Fmzanicw04.9cm/sPV Peak Grad.3mmHg Tricuspid Valve TR P. Rvfjsqvs563vm/sRAP IRHQPGCB8knIm TR Peak Gr.58fwIqKUHP82slIa Pulmonary Vein S1 Lkfvptxp71.7cm/sD2 Kfyepqew71.1cm/s LEFT VENTRICLE The left ventricle is normal size. There is normal left ventricular wall thickness. The left ventricu lar systolic function is normal. The Ejection Fraction is 55-60%. There is normal LV segmental wall m otion. Transmitral Doppler flow pattern is Grade II-pseudonormal filling dynamics. RIGHT VENTRICLE The right ventricle is normal size. There is normal right ventricular wall thickness. The right ventr icular systolic function is normal. ATRIA The left atrium size is normal. The right atrium size is normal. The interatrial septum is intact wit h no evidence for an atrial septal defect or patent foramen ovale as noted on 2-D or Doppler imaging. AORTIC VALVE The aortic valve is normal in structure and function. Doppler and Color Flow revealed no significant aortic regurgitation. There is no significant aortic valvular stenosis. MITRAL VALVE The mitral valve is normal in structure and function. There is no evidence of mitral valve prolapse. There is no mitral valve stenosis. Doppler and Color-flow revealed trace mitral regurgitation. TRICUSPID VALVE The tricuspid valve is normal in structure and function. Doppler and Color Flow revealed trace tricus pid regurgitation with an estimated PAP of 32 mmHg. There is no tricuspid valve stenosis. PULMONIC VALVE The pulmonic valve is not well visualized. Doppler and Color Flow revealed no pulmonic valvular regur gitation. GREAT VESSELS The aortic root is normal in size. The ascending aorta is normal in size. The IVC is normal in size a nd collapses >50% with inspiration. PERICARDIAL EFFUSION There is no evidence of significant pericardial effusion. Critical Notification Critical Value: No <Conclusion> The left ventricular systolic function is normal. The Ejection Fraction is 55-60%. There is normal LV segmental wall motion. Trace mitral regurgitation. Trace tricuspid regurgitation with an estimated PAP of 32 mmHg. There is no evidence of significant pericardial effusion. Signed by : Dany Miller, Electronically Approved : 08/10/2019 11:35:42
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
== END 2019-08-10 11:39 | disposition home health service (06) | DRG 92 ==
LOC: 1 SOUTH 16:17
PROVIDERS: ADMIT Family Medicine; ATTEND Family Medicine
DX: R26.0 Ataxic gait (principal); E87.0 Hyperosmolality and hypernatremia; M13.0 Polyarthritis, unspecified; E03.9 Hypothyroidism, unspecified; E78.5 Hyperlipidemia, unspecified; F32.9 Major depressive disorder, single episode, unspecified; F41.9 Anxiety disorder, unspecified; I10 Essential (primary) hypertension; J44.9 Chronic obstructive pulmonary disease, unspecified; K21.9 Gastro-esophageal reflux disease without esophagitis; R29.6 Repeated falls; Z79.1 Long term (current) use of non-steroidal anti-inflammatories (NSAID); T50.905A Adverse effect of unspecified drugs, medicaments and biological substances, initial encounter; Z79.890 Hormone replacement therapy; Z79.82 Long term (current) use of aspirin; Z79.899 Other long term (current) drug therapy; Z82.49 Family history of ischemic heart disease and other diseases of the circulatory system; Z85.828 Personal history of other malignant neoplasm of skin; Z87.11 Personal history of peptic ulcer disease; Z90.710 Acquired absence of both cervix and uterus; Z91.81 History of falling
CPT/HCPCS: 36415; 70450; 71046; 72040; 72072; 72100; 80053; 81001; 82550; 82607; 84443; 85025; 87086; 93306; 97110

== ENCOUNTER 2021-03-19 10:14 | Inpatient (IN) | payer MEDICARE ==
[~2021-03-19] VITALS: Ht 158.8 cm; Wt 75.9 kg
[~2021-03-19 10:14] MED LIST changes: -ASPI-612 PO; +ASPI-889 PO; +CELE200C PO; +ERGO2000 PO; +FURO20TA3 PO; +OMEP-203 PO; -OMEP40CA45 PO; +OMEP40CA7 PO
--- NOTE | 2021-03-19 11:03 | PHYS DOC ---
Past History Past Medical History: COPD, DVT, GI Bleed, High Cholesterol, Hypertension, P.U.D, TIA, Other Past Surgical History: Hysterectomy, Oophorectomy, Other Smoking: Non-smoker Alcohol Use: None Drug Use: None General Adult EDM: Chief Complaint: SHORTNESS OF BREATH HPI: HPI: 85-year-old female with recent diagnosis of pneumonia with no supplemental oxygen requirement at home presents the emergency department complaining of shortness of breath started over the last 2 days progressively. She was diagnosed with pneumonia on Wednesday and was prescribed doxycycline for her community-acquired pneumonia by Dr. Fraser's office. She reports that the shortness of breath got worse this morning which prompted a visit to the emergency department. She complains of a mild cough. She otherwise states that she feels that she is improving now. The patient denies nausea, vomiting, fever, chills, chest pain, abdominal pain, urinary symptoms, recent trauma, or any other complaints. She has been fully vaccinated for Covid x2 Review of Systems: Review of Systems: ROS otherwise negative except what was mentioned in HPI Allergies: Allergies: Allergies Coded Allergies Type Severity Reaction Last Updated Verified Penicillins Allergy Severe Anaphylaxis 03/19/21 Yes Quinolones Allergy Severe Anaphylaxis 03/19/21 Yes fish oil Allergy Severe anaphylaxis 03/19/21 Yes bacitracin Allergy Intermediate rash/itching 03/19/21 Yes ciprofloxacin Allergy Intermediate sob 03/19/21 No morphine Allergy Intermediate gi 03/19/21 No zolpidem Allergy Intermediate would not wake up 09/27/14 No Physical Exam: PE: Constitutional: No acute distress, non-toxic appearance. HENT: Atraumatic, bilateral external ears normal, nose normal. Eyes: PERRLA, EOMI, conjunctiva normal, no discharge. Neck: Normal range of motion, supple, no stridor. Cardiovascular: Heart rate regular rhythm. 2+ radial pulses Lungs & Thorax: No respiratory distress, symmetrical expansion. Bilateral breath sounds clear to auscultation Abdomen: Soft, no tenderness Skin: Warm, dry. Extremities: No tenderness, no cyanosis, ROM intact, no edema. Neurologic: Alert and oriented X 3, normal motor function, normal sensory function, no focal deficits noted. Non ataxic gait. GCS 15. Psychologic: Affect normal, judgment normal, mood normal. Current Patient Data: Labs: Laboratory Tests Test 03/19/21 11:45 White Blood Count 10.1 x10^3/uL (4.0-11.0) Red Blood Count 4.17 x10^6/uL (3.50-5.40) Hemoglobin 13.1 g/dL (12.0-15.5) Hematocrit 39.8 % (36.0-47.0) Mean Corpuscular Volume 95 fL (79-100) Mean Corpuscular Hemoglobin 31 pg (25-35) Mean Corpuscular Hemoglobin Concent 33 g/dL (31-37) Red Cell Distribution Width 14.9 % (11.5-14.5) H Platelet Count 206 x10^3/uL (140-400) Neutrophils (%) (Auto) 88 % (31-73) H Lymphocytes (%) (Auto) 6 % (24-48) L Monocytes (%) (Auto) 6 % (0-9) Eosinophils (%) (Auto) 0 % (0-3) Basophils (%) (Auto) 0 % (0-3) Neutrophils # (Auto) 8.9 x10^3uL (1.8-7.7) H Lymphocytes # (Auto) 0.6 x10^3/uL (1.0-4.8) L Monocytes # (Auto) 0.7 x10^3/uL (0.0-1.1) Eosinophils # (Auto) 0.0 x10^3/uL (0.0-0.7) Basophils # (Auto) 0.0 x10^3/uL (0.0-0.2) SARS-CoV-2 Antigen (Rapid) Negative (NEGATIVE) Vital Signs: Vital Signs Date Time Temp Pulse Resp B/P (MAP) Pulse Ox O2 Delivery O2 Flow Rate FiO2 03/19/21 10:29 97.9 76 20 143/53 (83) 91 Room Air EKG: EKG: Time read: 11 AM Normal sinus rhythm rate of 68, no ST-T wave changes, low voltage, left axis deviation, normal MN, QRS, and QTc intervals. Impression: No STEMI interpreted by meSimeon D.O. Radiology/Procedures: Radiology/Procedures: PROCEDURE: CHEST AP ONLY XR CHEST 1V History: Shortness of air Comparison: 08/08/2019 Technique: Portable AP radiograph of the chest. Findings: Mild hypoinflation. Bibasilar opacification. Blunting of left costophrenic angle may represent small effusion. No pneumothorax. Cardiac silhouette is normal in size. Hiatal hernia. Mild prominence of pulmonary vasculature. No acute osseous abnormality. Impression: 1. Hypoinflation with bibasilar opacities likely atelectasis and possible small left pleural effusion. 2. Prominent pulmonary vasculature may represent vascular congestion. Electronically signed by: Josias Harp MD (03/19/2021 12:12 PM) Heart Score: C/O Chest Pain: No Course & Med Decision Making: Course & Med Decision Making Patient being treated for outpatient pneumonia, however she has a new oxygen requirement as she was desatting down to the high 80s and low 90s. She is not on oxygen at home. We will treat her with ceftriaxone and azithromycin for community-acquired pneumonia. I discussed the case with Dr. Fraser who will admit the patient to the hospital. Family is amenable to this plan My Orders - SIMEON BARDALES DO Procedure Category Date Status Time Cbc W [place] LAB 03/19/21 Complete 11:12 Chest Ap Only RAD 03/19/21 Resulted 11:12 Ua, Cult If Indicated LAB 03/19/21 Logged 11:16 Coronavirus-19, Pcr LAB 03/19/21 In Process ([facility]) 11:18 12 Lead Ekg EKG 03/19/21 Complete 12:11 Basic Metabolic Panel LAB 03/19/21 Logged 12:17 Nt-Pro Bnp LAB 03/19/21 Logged 12:17 Troponin I LAB 03/19/21 Logged 12:17 [place] Order ADT 03/19/21 Transmitted 13:06 Code Status CODE 03/19/21 Transmitted 13:06 Vital Signs, Per MIKEL 03/19/21 In Process Protocol 13:06 Regular DIET 03/19/21 Transmitted Breakfast Ambulate With MIKEL 03/19/21 In Process Assistance 13:06 Ondansetron Pf PHA 03/19/21 In Process (Zofran) 13:15 Consult Physician By CONS 03/19/21 Transmitted Name 13:06 Acetaminophen PHA 03/19/21 In Process (Tylenol) 13:15 Ceftriaxone Sodium PHA 03/19/21 In Process (Rocephin) 13:15 Azithromycin PHA 03/19/21 Logged (Zithromax) 13:15 Departure Departure: Impression: Primary Impression: Pneumonia Disposition: ADMITTED INPATIENT Admitting Physician: Kaz Travis Condition: STABLE Referrals: KAZ TRAVIS MD (PCP) SIMEON BARDALES DO Mar 19, 2021 11:03
--- NOTE | 2021-03-19 12:14 | RAD ---
XR CHEST 1V History: Shortness of air Comparison: 08/08/2019 Technique: Portable AP radiograph of the chest. Findings: Mild hypoinflation. Bibasilar opacification. Blunting of left costophrenic angle may represent small effusion. No pneumothorax. Cardiac silhouette is normal in size. Hiatal hernia. Mild prominence of pu lmonary vasculature. No acute osseous abnormality. Impression: 1. Hypoinflation with bibasilar opacities likely atelectasis and possible small left pleural effusio n. 2. Prominent pulmonary vasculature may represent vascular congestion. Electronically signed by: Josias Harp MD (03/19/2021 12:12 PM) [id number]
--- NOTE | 2021-03-19 12:15 | EKG ---
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
[2021-03-19 12:18] LABS: BASO % 0 % (0-3); EOS % 0 % (0-3); HEMATOCRIT 39.8 % (36.0-47.0); HEMOGLOBIN 13.1 g/dL (12.0-15.5); LYMPH # 0.6 x10^3/uL (1.0-4.8); LYMPH % 6 % (24-48); MEAN CORPUSCULAR HEMOGLOBIN 31 pg (25-35); MEAN CORPUSCULAR HGB CONC 33 g/dL (31-37); MEAN CORPUSCULAR VOLUME 95 fL (79-100); MONO # 0.7 x10^3/uL (0.0-1.1); MONO % 6 % (0-9); NEUT # 8.9 x10^3uL (1.8-7.7); NEUT % 88 % (31-73); PLATELET COUNT 206 x10^3/uL (140-400); RED BLOOD COUNT 4.17 x10^6/uL (3.50-5.40); RED CELL DISTRIBUTION WIDTH 14.9 % (11.5-14.5); WHITE BLOOD COUNT 10.1 x10^3/uL (4.0-11.0)
[2021-03-19] MEDS ORDERED: AZITHROMYCIN 500 MG in IV NORMAL SALINE 250ML 250 ML IV ONE (13:15)
[2021-03-19] MEDS ORDERED: ACETAMINOPHEN 325 MG TABLET PO PRN (13:15)
[2021-03-19] MEDS ORDERED: ONDANSETRON PF 4 MG/2 ML VIAL. IVP PRN (13:15)
[2021-03-19] MEDS ORDERED: IV NORMAL SALINE 250ML 250 ML ONE (13:29)
[2021-03-19] MEDS ORDERED: AZITHROMYCIN 500 MG VIAL. IV ONE (13:29)
[2021-03-19] MEDS ORDERED: IV NORMAL SALINE 100ML 100 ML ONE (13:30)
[2021-03-19 13:36] LABS: CREATININE 1.2 mg/dL (0.6-1.0); GFR 42.8; POTASSIUM 4.3 mmol/L (3.5-5.1)
[2021-03-19] MEDS ORDERED: CHOL400T36 PO (18:28)
[2021-03-19] MEDS ORDERED: OMEP40CA7 PO (18:29)
[2021-03-19] MEDS ORDERED: CRESTOR5 MG PO (18:30)
[2021-03-19] MEDS ORDERED: ASPI-889 PO (18:31)
[2021-03-19] MEDS ORDERED: METH4TAB6 PO (18:32)
[2021-03-19] MEDS ORDERED: BENZ200C47 PO (18:37)
[2021-03-19] MEDS ORDERED: DOXY100C3 PO (18:38)
[2021-03-19 20:26] LABS: BILIRUBIN,URINE NEG (NEG); CLARITY,URINE CLEAR; COLOR,URINE YELLOW; GLUCOSE,URINE NEG (NEG); NITRITE,URINE NEG (NEG); RBC,URINE 0 /HPF (0-2); UROBILINOGEN,URINE 0.2 mg/dL (0.2 mg/dL)
[2021-03-19 20:27] LABS: BACTERIA,URINE FEW /HPF (0-FEW); SQUAMOUS EPITHELIAL CELL,UR FEW /LPF
[2021-03-19 21:25] VITALS: BP 105/67
[2021-03-20] MEDS ORDERED: METHYLPREDNISOLONE 4 MG PO SCH (10:45)
[2021-03-20] MEDS ORDERED: BENZONATATE 100 MG CAPSULE. PO PRN (11:45)
[2021-03-20] MEDS ORDERED: CELECOXIB 100 MG CAPSULE PO PRN (12:30)
[2021-03-20] MEDS: amLODIPine BESYLATE 5 MG TABLET PO SCH (19:15)
[2021-03-20 19:37] VITALS: BP 144/78
--- NOTE | 2021-03-20 20:52 | NUR ---
The patient, LEYDI NOEL, 85 y/o, F admitted by KAZ TRAVIS MD, was given written information regarding hospital policies, unit procedures and contact persons. Valuables were checked and vital signs obtained. Reviewed with PT her PMH, PSH, SH, FH and medications. PT states she will speak with her daughter to decide if she will take the flu vaccine here.
[2021-03-20] MEDS ORDERED: LORazepam 0.5 MG TABLET PO PRN (21:00)
[2021-03-20] MEDS ORDERED: NON FORMULARY ITEM (Doxycycline Hyclate 1 CAP) PO SCH (21:00)
[2021-03-20] MEDS: ATORVASTATIN CALCIUM 20 MG TABLET PO SCH (21:23)
[2021-03-20 22:52] VITALS: BP 124/72
[2021-03-21] MEDS: LEVOTHYROXINE 50 MCG TABLET PO SCH (05:50)
[2021-03-21 06:12] VITALS: BP 132/76
[2021-03-21] MEDS: BUMETANIDE 1 MG TABLET PO SCH (08:16)
[2021-03-21] MEDS: PANTOPRAZOLE 40 MG TABLET. PO SCH (08:16)
[2021-03-21] MEDS: MULTIVITAMIN I-VITE TABLET. PO SCH (08:16)
[2021-03-21] MEDS: ASPIRIN ENTERIC COATED 81 MG TABLET.DR. PO SCH (08:16)
[2021-03-21] MEDS: CHOLECALCIFEROL (VITAMIN D3) 1,000 UNIT TABLET PO SCH (08:16)
--- NOTE | 2021-03-21 08:54 | PN ---
SUBJECTIVE: An 85-year-old female in with shortness of breath, possible pneumonia. The patient seems to be doing a little bit better, spent a night down in the Emergency Room. Otherwise, is making some progress overall. The patient has been placed on antibiotics and diuresed. She was down as low as 91% on room air. OBJECTIVE: VITAL SIGNS: Blood pressure 143/53, respiratory rate 20, pulse 76, afebrile. She is on 2 liters at 95. She does ____ at 89% on room air. GENERAL: The patient otherwise is alert and oriented. LUNGS: Diminished, but basically shows some rales and rhonchi in the bases, otherwise seems to be resting comfortably there. CARDIOVASCULAR: Regular sinus rhythm, S1, S2, without murmur, rub, thrill, or extra heart sounds. ABDOMEN: Soft, nontender. EXTREMITIES: No clubbing, cyanosis. Trace edema. NEUROLOGIC: Alert and oriented x3. IMPRESSION: Acute respiratory distress including ____ diastolic heart failure, possible pneumonia. PLAN: Continue on diuresis and antibiotic therapy and make further evaluation. JEWEL/SEGUNDO/HITESH DR: Rajinder TID: [id number]
[2021-03-21] MEDS ORDERED: OMEPRAZOLE MAGNESIUM PO SCH (09:00)
[2021-03-21] MEDS ORDERED: NON FORMULARY ITEM (Multivitamin (Multi Vitamin Daily) 1 EACH) PO SCH (09:00)
[2021-03-21] MEDS: amLODIPine BESYLATE 5 MG TABLET PO SCH (10:11)
[2021-03-21 11:00] VITALS: BP 123/58
[2021-03-21 14:56] VITALS: BP 107/69
[2021-03-21 19:45] VITALS: BP 123/73
[2021-03-21] MEDS: ATORVASTATIN CALCIUM 20 MG TABLET PO SCH (21:38)
[2021-03-21] MEDS: LACTOBACILLUS RHAMNOSUS GG 1 CAPSULE. PO SCH (21:39)
[2021-03-21 23:29] VITALS: BP 131/84
--- NOTE | 2021-03-22 02:40 | PN ---
SUBJECTIVE: The patient is admitted with shortness of breath, possible pneumonia and a little bit of heart failure. She is making good progress overall. She has been COVID negative consistently. OBJECTIVE: VITAL SIGNS: Blood pressure is that of 120/50, respiratory rate 20, pulse 75, afebrile. The patient has been down, requiring oxygen at 2 liters at 90, but has come up to 94%, blood pressure as indicated above. GENERAL: The patient otherwise alert and oriented, pleasant white female in no apparent distress presently. LUNGS: Diminished throughout, poor movement of air, but markedly improved. CARDIOVASCULAR: Regular sinus rhythm. ABDOMEN: Soft, nontender. No rebound or guarding. Positive bowel sounds. No hepatosplenomegaly was noted. EXTREMITIES: No clubbing, cyanosis, nor edema. NEUROLOGIC: The patient is alert and oriented. IMPRESSION: Acute respiratory distress, pleural effusion, vascular congestion, acute on top of chronic diastolic heart failure. PLAN: Continue with mild diuresis and make further evaluation for rehabilitation and possible placement. JAVED DR: Rajinder TID: [id number]
[2021-03-22 05:48] VITALS: BP 105/72
[2021-03-22] MEDS: LEVOTHYROXINE 50 MCG TABLET PO SCH (06:11)
[2021-03-22] MEDS: BUMETANIDE 1 MG TABLET PO SCH (07:38)
[2021-03-22] MEDS: MULTIVITAMIN I-VITE TABLET. PO SCH (07:38)
[2021-03-22] MEDS: ASPIRIN ENTERIC COATED 81 MG TABLET.DR. PO SCH (07:38)
[2021-03-22] MEDS: CHOLECALCIFEROL (VITAMIN D3) 1,000 UNIT TABLET PO SCH (07:38)
[2021-03-22] MEDS: LACTOBACILLUS RHAMNOSUS GG 1 CAPSULE. PO SCH (07:39)
[2021-03-22] MEDS: PANTOPRAZOLE 40 MG TABLET. PO SCH (07:39)
[2021-03-22] MEDS: amLODIPine BESYLATE 5 MG TABLET PO SCH (08:13)
[2021-03-22 10:42] VITALS: BP 109/66
--- NOTE | 2021-03-22 13:25 | DS ---
HOSPITAL COURSE: The patient is an 85-year-old female. The patient was admitted with some respiratory distress. The patient possible some diastolic heart failure and the like. The patient is given additional Lasix diuresed. The patient made excellent progress. She said she felt much better. The patient was at 93% on room air, blood pressure 110/66, respiratory rate 18, pulse 70, afebrile while for discharge. The patient's CBC was unremarkable. Chemistries were basically unremarkable. Her BUN and creatinine 31 and 1.2. Her GFR 43. Cardiac enzymes negative. BNP slightly elevated at 2300. The patient's COVID-19 negative. IMPRESSION: Therefore, acute respiratory distress, probable acute on top of chronic diastolic heart failure, chronic kidney disease stage 3A. The patient will be discharged home. Low-sodium diet, decreased activity and make further evaluation. She will be seen in the following week and make further assessment as indicated. CASSIA DR: Rajinder TID: [id number]
--- NOTE | 2021-03-22 13:29 | NUR ---
pt discharged at approx 1235 via wheelchair to front door where the daughters family was waiting for the pt. pt given discharge instructions and follow up information to see Charity in office next week. pt states understanding and given info when to seek medical attention.
--- NOTE | 2021-03-28 00:55 | DS ---
DATE OF DISCHARGE: 03/22/2021 HOSPITAL COURSE: An 85-year-old female who came in with respiratory distress, possible diastolic heart failure and the like. The patient was given IV Lasix diuresis as well as some oral antibiotics. BNP was slightly elevated at 2300. The patient made excellent progress during the rest of her hospitalization, with diuresis and all. The patient was discharged home for followup. IMPRESSION: Acute respiratory distress, probably secondary to acute on top of chronic diastolic heart failure, chronic kidney disease stage 3A. The patient will be discharged home. Low-sodium diet, decreased activity and make further evaluation. See [facility] for her medication list. JEWEL/DEMETRIO/CHANDU DR: Rajinder TID: [id number]
== END 2021-03-22 12:35 | disposition home or self-care (01) | DRG 177 ==
LOC: ER 10:14 → 1 SOUTH 13:06
PROVIDERS: ADMIT Family Medicine; ATTEND Family Medicine
DX: J15.6 Pneumonia due to other Gram-negative bacteria (principal); I50.33 Acute on chronic diastolic (congestive) heart failure; J96.01 Acute respiratory failure with hypoxia; I13.0 Hypertensive heart and chronic kidney disease with heart failure and stage 1 through stage 4 chronic kidney disease, or unspecified chronic kidney disease; J15.9 Unspecified bacterial pneumonia; J44.9 Chronic obstructive pulmonary disease, unspecified; E78.00 Pure hypercholesterolemia, unspecified; Z20.822 Contact with and (suspected) exposure to COVID-19; N18.31 Chronic kidney disease, stage 3a; Z90.710 Acquired absence of both cervix and uterus; Z86.73 Personal history of transient ischemic attack (TIA), and cerebral infarction without residual deficits; Z88.0 Allergy status to penicillin; Z88.8 Allergy status to other drugs, medicaments and biological substances
CPT/HCPCS: 36415; 71045; 80048; 81001; 83880; 84484; 85025; 87086; 87426; 93005; 96365; 96366; 96368; J0456; J0696; J7050; U0003; 99285-25